=== PATIENT | male | born 2000 | race Hispanic/Latino ===

== ENCOUNTER 2021-09-27 13:34 | Emergency (ER) | payer OTHER, SELFPAY ==
[2021-09-27] MEDS ORDERED: Acetaminophen 325 MG TAB ONE (14:02)
[2021-09-27] MEDS ORDERED: Metoclopramide HCl 10 MG TAB ONE (15:25)
[2021-09-27] MEDS ORDERED: diphenhydrAMINE 50 MG/ML VIAL ONE (15:25)
[2021-09-28 17:01] LABS: SARS-CoV-2 PCR by NAA DETECTED (NotDetected)
== END 2021-09-27 16:24 | disposition home or self-care (01) ==
LOC: ERS 13:34
DX: U07.1 COVID-19 (principal)
CPT/HCPCS: 96372; 99284; J1200; U0003; U0005